=== PATIENT | female | born 1965 | race Caucasian/White ===

== ENCOUNTER → 2017-01-28 | Outpatient (CLI) | payer OTHER ==
[~2017-01-28] VITALS: Ht 160 cm; Wt 54.4 kg
[~2017-01-28] MED LIST: CALTRATE 600 +1 EAC1 PO
== END | disposition home or self-care (01) ==
LOC: AMB 06:49
DX: Z12.11 Encounter for screening for malignant neoplasm of colon (principal); D12.2 Benign neoplasm of ascending colon; D12.0 Benign neoplasm of cecum
CPT/HCPCS: 88305; J2405